=== PATIENT | male | born 1990 | race African-American/Black ===

== ENCOUNTER 2018-10-13 11:22 | Emergency (ER) | payer MEDICAID ==
--- NOTE | 2018-10-13 11:32 | ED Physician Chart ---
ED Chief Complaint/HPI - Patient Information Date Seen:: 10/13/18 Time Seen:: 11:25 Chief Complaint:: Hallucinations History of Present Illness:: onset x 3 days of hallucinations and SIs; no report of/pt denies trauma, LOC, ALOC, AMS, H/As, neck pain, C/P, SOB, Abd. Pain, or urinary s/s Allergies:: Allergies Allergy/AdvReac Type Severity Reaction Status Date / Time No Known Allergies Allergy Verified 10/13/18 11:28 Historian:: Patient, EMS Review:: Nurse's Note Reviewed, Old Chart Reviewed, EMS run form Reviewed ED Review of Systems - Review of Systems General/Constitutional: No fever, No chills, No weight loss, No weakness, No diaphoresis, No edema, No loss of appetite Skin: No skin lesions, No rash, No bruising Head: No headache, No light-headedness Eyes: No loss of vision, No pain, No diplopia ENT: No earache, No nasal drainage, No sore throat, No tinnitus Neck: No neck pain, No swelling, No thyromegaly, No stiffness, No mass noted Cardio Vascular: No chest pain, No palpitations, No PND, No orthopnea, No edema Pulmonary: No SOB, No cough, No sputum, No wheezing GI: No nausea, No vomiting, No diarrhea, No pain, No melena, No hematochezia, No constipation, No hematemesis G/U: No dysuria, No frequency, No hematuria, No nacturia Musculoskeletal: No bone or joint pain, No back pain, No muscle pain Endocrine: No polyuria, No polydipsia Psychiatric: Prior psych history, No depression, Anxiety, No suicidal ideation, No homicidal ideation, Auditory hallucination, No visual hallucination Hematopoietic: No bruising, No lymphadenopathy Allergic/Immuno: No urticaria, No angioedema Neurological: No syncope, No focal symptoms, No weakness, No paresthesia, No headache, No seizure, No dizziness, No confusion, No vertigo ED Past Medical History - Past Medical History Obtainable: Yes Past Medical History: No significant medical hx Family History: None Social History: Non Smoker, Alcohol, No Drug Use, Single, Homeless Surgical History: None Psychiatricy History: Schizophrenia Medication: Reviewed Family Medical History - Family Member Mother History Unknown: Yes ED Physical Exam - Physical Examination General/Constitutional: Awake, Well-developed, well-nourished, Alert, No distress, GCS 15, Non-toxic appearing, Ambulatory Head: Atraumatic Eyes: Lids, conjuctiva normal, PERRL, EOMI Skin: Nl inspection, No rash, No skin lesions, No ecchymosis, Well hydrated, No lymphadenopathy ENMT: External ears, nose nl, TM canals nl, Nasal exam nl, Lips, teeth, gums nl , Oropharynx nl, Tonsils nl Neck: Nontender, Full ROM w/o pain, No JVD, No nuchal rigidity, No bruit, No mass, No stridor Other Neck comments:: supple; no meningeal signs; no cervical tenderness; no bruits Respiratory: Nl effort/Exclusion, Clear to Auscultation, No Wheeze/Rhonchi/Rales Cardio Vascular: RRR, No murmur, gallop, rubs, NL S1 S2, Carotid/Femoral/Distal pulses equal bilaterally GI: No tenderness/rebounding/guarding, No organomegaly, No hernia, Normal BS's, Nondistended, No mass/bruits, No McBurney tenderness, Rectum exam nl Other GI comments:: no pulsatile masses : No CVA tenderness Extremities: No tenderness or effusion, Full ROM, normal strength in all extremities, No edema, Normal digits & nails Neuro/Psych: Alert/oriented, DTR's symmetric, Normal sensory exam, Normal motor strength, Judgement/insight normal, Mood normal, Normal gait, No focal deficits Other Neuro/Psych comments:: MSE: + Hallucinations; + SIs; Mood/Affect: Stable Misc: Normal back, No paraspinal tenderness ED Labs/Radiology/EKG Results - Lab Results Comments:: Reviewed - EKG Interpretations Rate & Rhythm: NSR Comments:: non-specific st-t changes ED Septic Shock - . Is Septic Shock (SBP<90, OR Lactate>4 mmol\L) present?: No ED Reassessment (Disposition) - Reassessment Reassessment Condition:: Improved - Diagnosis Diagnosis:: Hallucinations; Medical Clearance; Substance Abuse; SIs; Depression; Bipolar Disorder; Schizophrenia
[2018-10-13 11:59] LABS: HEMOGLOBIN 14.6 gm/dL (12-16); RED BLOOD COUNT 4.69 Mil/cmm (4.30-5.70); WHITE BLOOD COUNT 6.5 Th/cmm (4.8-10.8)
[2018-10-13 12:00] LABS: % LYMPHOCYTES 24.2 % (20.0-50.0); % MONOCYTES 8.2 % (2.0-10.0); % NEUTROPHILS 64.4 % (40.0-80.0); MEAN CELL VOLUME 91.6 fl (80-99); MEAN CORPUSCULAR HEMOGLOBIN 31.1 pg (26.0-30.0); MEAN PLATELET VOLUME 6.7 fl; PLATELET COUNT 327 Th/cmm (150-400); RED CELL DISTRIBUTION WIDTH 12.7 % (11.5-20.0)
[2018-10-13 12:01] LABS: % BASOPHILS 0.4 % (0.0-2.0); % EOSINOPHILS 2.8 % (0.0-5.0)
[2018-10-13 12:10] LABS: ACETAMINOPHEN < 10.0 ug/mL (10.0-30.0); ALB/GLOB RATIO 1.6 (1.0-1.8); ALBUMIN 4.3 gm/dL (4.2-5.5); ALKALINE PHOSPHATASE 65 U/L (34-104); BILIRUBIN,TOTAL 1.3 mg/dL (0.3-1.0); BUN - UREA NITROGEN 12 mg/dL (7-25); CALCIUM SERUM 9.4 mg/dL (8.6-10.3); CHLORIDE 101 mEq/L (98-107); CHOLESTEROL 187 mg/dL (<200); CREATININE - SERUM 0.9 mg/dL (0.7-1.3); GFR AFRICAN-AMERICAN > 60.0 ml/min (>90); GFR NON AFRICAN-AMERICAN > 60.0 ml/min; GLUCOSE 92 mg/dL (70-105); HDL -HIGH DENSITY LIPOPROTEIN 28 mg/dL (23-92); SGOT 25 U/L (13-39); SGPT/ALT 48 U/L (7-52); SODIUM SERUM 136 mEq/L (136-145); TRIGLYCERIDES 130 mg/dL (<150)
[2018-10-13 12:12] LABS: SALICYLATES (ASPIRIN) < 25.0 mg/L (30.0-100.0)
[2018-10-13 14:30] LABS: URINE SOURCE CLEAN C
[2018-10-13 14:35] LABS: URINE BILIRUBIN NEGATIVE (NEGATIVE); URINE BLOOD NEGATIVE (NEGATIVE); URINE GLUCOSE (UA) NEGATIVE (NEGATIVE); URINE KETONE NEGATIVE (NEGATIVE); URINE LEUKOCYTE ESTERASE NEGATIVE (NEGATIVE); URINE NITRATE NEGATIVE (NEGATIVE); URINE PH 6.5 (4.6 - 8.0); URINE PROTEIN NEGATIVE (NEGATIVE); URINE UROBILINOGEN 0.2 E.U./dL (0.2 - 1.0)
[2018-10-13 14:50] LABS: URINE CLARITY CLEAR (CLEAR); URINE COLOR YELLOW; URINE MICROSCOPIC INDICATED? YES
[2018-10-13 14:52] LABS: URINE RBC NONE SEEN /hpf (0-5); URINE WBC 0-2 /hpf (0-5)
[2018-10-13 14:53] LABS: URINE BACTERIA OCCASIONAL /hpf (NONE SEEN); URINE EPITHELIAL CELLS OCCASIONAL /lpf (FEW)
[2018-10-13 14:54] LABS: AMPHETAMINE URINE NEGATIVE (NEGATIVE); BARBITURATES URINE NEGATIVE (NEGATIVE); BENZODIAZEPINES QUAL URINE NEGATIVE (NEGATIVE); CANNABINOID THC POSITIVE (NEGATIVE); COCAINE METABOLITE QUAL URINE NEGATIVE (NEGATIVE); METHADONE URINE NEGATIVE (NEGATIVE); METHAMPHETAMINES QUAL URINE NEGATIVE (NEGATIVE); OPIATES (MORPHINE) QUAL. URINE NEGATIVE (NEGATIVE); PHENCYCLIDINE (PCP) URINE NEGATIVE (NEGATIVE); TRICYCLICS (TCA) QUAL. URINE POSITIVE (NEGATIVE)
== END 2018-10-13 21:57 | disposition short-term general hospital (02) ==
LOC: ER 11:22
DX: F32.9 Major depressive disorder, single episode, unspecified (principal); F20.9 Schizophrenia, unspecified; F29 Unspecified psychosis not due to a substance or known physiological condition; F19.10 Other psychoactive substance abuse, uncomplicated; Z59.0 Homelessness
CPT/HCPCS: 36415-UA; 80053-TC; 80061-TC; 80307; 80320-TC; 80329-TC; 81001-TC; 84443-TC; 84484-TC; 85025-TC; 86592-TC; 93005